=== PATIENT | female | born 1950 | race Caucasian/White ===

== ENCOUNTER 2019-01-07 19:25 | Observation (INO) | payer OTHER ==
--- NOTE | 2019-01-07 19:35 | EDPHY ---
H & P Stated Complaint: chest pressure, fullness, sob Time Seen by Provider: 01/07/19 19:33 - Personal History Current Tetanus Diphtheria and Acellular Pertussis (TDAP): Yes Tetanus Vaccine Date: WITHIN 10 YRS - Medical/Surgical History Hx Asthma: No Hx Chronic Respiratory Disease: No Hx Diabetes: Yes Hx Cardiac Disease: Yes Hx Renal Disease: No Hx Cirrhosis: No Hx Alcoholism: No Hx HIV/AIDS: No Hx Splenectomy or Spleen Trauma: No Other PMH: hypertension, diabetic type 2. cardiac ablation - Social History Smoking Status: Never smoked Constitutional: Initial Vital Signs Temperature (C) 36.9 C 01/07/19 19:29 Heart Rate 55 L 01/07/19 19:29 Respiratory Rate 18 01/07/19 19:29 Blood Pressure 178/64 H 01/07/19 19:29 O2 Sat (%) 92 01/07/19 19:29 O2 Delivery Mode Room Air Allergies/Adverse Reactions: No Known Allergies Allergy (Unverified 01/07/19 19:28) Home Medications: Medication Instructions Recorded Glimepiride 01/07/19 Herbals/Supplements -Info Only 1 ea PO DAILY 01/07/19 Losartan Potassium 01/07/19 Metformin HCl 01/07/19 Pravastatin Sodium 01/07/19 Ranitidine HCl 01/07/19 Medical Decision Making - Diagnostics Imaging: I viewed and interpreted images myself ED Course/Re-evaluation: CHIEF COMPLAINT: Chest pressure, shortness of breath HISTORY OF PRESENT ILLNESS: The patient is a 68 y/o female with a history of PSVT, a cardiac ablation, hypertension, and diabetes complaining of "an odd feeling in her chest" and shortness of breath. Around 2 years ago she saw her hand upper and bottom lacer as her heart was "beating hard". After numerous tests, she had no significant diagnoses. Today she developed the odd symptoms and decided to present to the emergency department. No fever, headache, body aches, lightheadedness, cough, abdominal pain, urinary or bowel complaints, numbness, paresthesias. REVIEW OF SYSTEMS: A 10 point review of systems was performed and is negative with the exception of the elements mentioned in the history of present illness. PHYSICAL EXAM: HR, BP, O2 Sat, RR. Temp noted General Appearance: Alert, well hydrated, appropriate, and non-toxic appearing. Head: Atraumatic without scalp tenderness or obvious injury Eyes: Pupils equal, round, reactive to light and accommodation, EOMI, no trauma , no injection. Ears: Clear bilaterally, no perforation, normal landmarks Nose: Atraumatic, no rhinorrhea, clear. Throat: There is no erythema or exudates, no lesions, normal tonsils, mucus membranes moist. Neck: Supple, 2+ carotid upstroke, nontender, no lymphadenopathy. Respiratory: No retractions, no distress, no wheezes, and no accessory muscle use. Lungs are clear to auscultation bilaterally. Cardiovascular: Regular rate and rhythm, no murmurs, rubs, or gallops. Bilateral carotid, radial, dorsalis pedis, and posterior tibial pulses intact. Good capillary refill all extremities. Gastrointestinal: Abdomen is soft, nontender, non-distended, no masses, no rebound, no guarding, no peritoneal signs. Musculoskeletal: Normal active ROM of all extremities, atraumatic. Neurological: Alert, appropriate, and interactive. The patient has normal DTRs and non-focal cranial nerves, motor, sensory, and cerebellar exam. Skin: No rashes, good turgor, no nodules on palpation. Past medical history: Hypertension, diabetic (type 2), PSVT Past surgical history: Cardiac ablation (by Dr. Moe) Family history: Denies Social history: Lives in [place], employed, single DIAGNOSTICS/PROCEDURES/CRITICAL CARE TIME: EKG: The 12 lead EKG was interpreted by myself as sinus tachycardia with a rate of 103 and ventricular bigeminy. See hard copy and/or "tracemaster" electronic copy for interpretation. Chest x-ray: No acute findings. DIFFERENTIAL DIAGNOSIS: The differential diagnosis for the patient's chest pain included but was not limited to myocardial ischemia, pulmonary embolus, chest wall pain, pleural inflammation, and pulmonary infectious causes. MEDICAL DECISION MAKING: The patient is a 68 y/o female with a history of PSVT, a cardiac ablation, hypertension, and diabetes presenting with "an odd feeling in her chest" and shortness of breath. She has a normal physical exam as she is out of PSVT. She will be in normal sinus for 4-5 minutes and then back into PSVT for several minutes. Labs, EKG, and chest x-ray ordered. I also discussed plan for admission , which she is comfortable with. 1936: I reviewed patient's EKG as sinus tachycardia with a rate of 103 and ventricular bigeminy. 1943: I consulted with Dr. Degroot, hand upper and bottom lacer, regarding this patient. He does not believe that the patient will need any antiarrhythmics. He will consult on this patient during her admission. 1999: Patient's troponin is negative. I will page the hospitalist for admission. 2030: I consulted with the hospitalist service, Dr. Lorenz accepts admission of this patient for her bigeminy rhythm. - Data Points Laboratory Results: Laboratory Results 01/07/19 19:35 01/07/19 19:35 01/07/19 01/07/19 01/07/19 19:54 19:50 19:42 WBC RBC Hgb POC Hgb 15.3 gm/dL gm/dL (12.6-16.3) Hct POC Hct 45 % % (38-47) MCV MCH MCHC RDW Plt Count MPV Neut % (Auto) Lymph % (Auto) Mower % (Auto) Eos % (Auto) Baso % (Auto) Nucleat RBC Rel Count Absolute Neuts (auto) Absolute Lymphs (auto) Absolute Monos (auto) Absolute Eos (auto) Absolute Basos (auto) Absolute Nucleated RBC Immature Gran % Immature Gran # POC Sodium 141 mEq/L mEq/L (135-145) Sodium POC Potassium 3.8 mEq/L mEq/L (3.3-5.0) Potassium POC Chloride 102 mEq/L mEq/L (97-110) Chloride Carbon Dioxide POC Total CO2 26 mEq/L mEq/L (22-31) Anion Gap POC BUN 17 mg/dL mg/dL (7-23) BUN Creatinine POC Creatinine 0.9 mg/dL mg/dL (0.6-1.0) Estimated GFR Glucose POC Glucose 195 mg/dL H mg/dL (70-100) Calcium Magnesium POC Troponin I 0.00 ng/mL ng/mL TNP (0.00-0.08) NT-Pro-B Natriuret Pep 01/07/19 01/07/19 19:35 19:35 WBC 6.91 10^3/uL 10^3/uL (3.80-9.50) RBC 4.79 10^6/uL 10^6/uL (4.18-5.33) Hgb 14.4 g/dL g/dL (12.6-16.3) POC Hgb Hct 44.1 % % (38.0-47.0) POC Hct MCV 92.1 fL fL (81.5-99.8) MCH 30.1 pg pg (27.9-34.1) MCHC 32.7 g/dL g/dL (32.4-36.7) RDW 12.8 % % (11.5-15.2) Plt Count 307 10^3/uL 10^3/uL (150-400) MPV 9.6 fL fL (8.7-11.7) Neut % (Auto) 46.0 % % (39.3-74.2) Lymph % (Auto) 39.1 % % (15.0-45.0) Mower % (Auto) 11.3 % % (4.5-13.0) Eos % (Auto) 2.6 % % (0.6-7.6) Baso % (Auto) 0.7 % % (0.3-1.7) Nucleat RBC Rel Count 0.0 % % (0.0-0.2) Absolute Neuts (auto) 3.18 10^3/uL 10^3/uL (1.70-6.50) Absolute Lymphs (auto) 2.70 10^3/uL 10^3/uL (1.00-3.00) Absolute Monos (auto) 0.78 10^3/uL 10^3/uL (0.30-0.80) Absolute Eos (auto) 0.18 10^3/uL 10^3/uL (0.03-0.40) Absolute Basos (auto) 0.05 10^3/uL 10^3/uL (0.02-0.10) Absolute Nucleated RBC 0.00 10^3/uL 10^3/uL (0-0.01) Immature Gran % 0.3 % % (0.0-1.1) Immature Gran # 0.02 10^3/uL 10^3/uL (0.00-0.10) POC Sodium Sodium 138 mEq/L mEq/L (135-145) POC Potassium Potassium 4.1 mEq/L mEq/L (3.5-5.2) POC Chloride Chloride 100 mEq/L mEq/L (97-110) Carbon Dioxide 26 mEq/l mEq/l (22-31) POC Total CO2 Anion Gap 12 mEq/L mEq/L (6-14) POC BUN BUN 18 mg/dL mg/dL (7-23) Creatinine 0.8 mg/dL mg/dL (0.6-1.0) POC Creatinine Estimated GFR > 60 Glucose 188 mg/dL H mg/dL (70-100) POC Glucose Calcium 10.0 mg/dL mg/dL (8.5-10.4) Magnesium 1.8 mg/dL mg/dL (1.6-2.3) POC Troponin I NT-Pro-B Natriuret Pep 49 pg/mL pg/mL (0-125) Point of Care Test Results: Chemistry 01/07/19 01/07/19 01/07/19 19:54 19:50 19:42 POC Sodium 141 mEq/L mEq/L (135-145) POC Potassium 3.8 mEq/L mEq/L (3.3-5.0) POC Chloride 102 mEq/L mEq/L (97-110) POC Total CO2 26 mEq/L mEq/L (22-31) POC BUN 17 mg/dL mg/dL (7-23) POC Creatinine 0.9 mg/dL mg/dL (0.6-1.0) POC Glucose 195 mg/dL H mg/dL (70-100) POC Troponin I 0.00 ng/mL ng/mL TNP (0.00-0.08) ISTAT H&H 01/07/19 19:50 POC Hgb 15.3 gm/dL gm/dL (12.6-16.3) POC Hct 45 % % (38-47) Departure - Departure Disposition: [facility] Inpatient Acute Clinical Impression: Ventricular bigeminy, Shortness of breath Chest pain Qualifiers: Chest pain type: other chest pain Qualified Code(s): R07.89 - Other chest pain Condition: Fair Referrals: Ruth Almeida MD [Primary Care Provider] - As per Instructions Report Scribed for: Silvio Schmidt Report Scribed by: Gloria Kemp Date of Report: 01/07/19 Time of Report: 19:46
[2019-01-07 19:50] LABS: PLATELET COUNT 307 10^3/uL (150-400)
--- NOTE | 2019-01-07 20:02 | CPEKG ---
Test Reason : OPEN Blood Pressure : / mmHG Vent. Rate : 103 BPM Atrial Rate : 049 BPM P-R Int : 145 ms QRS Dur : 088 ms QT Int : 297 ms P-R-T Axes : 050 -12 212 degrees QTc Int : 389 ms Sinus tachycardia Ventricular bigeminy Probable left atrial enlargement Left ventricular hypertrophy Abnormal T, consider ischemia, diffuse leads Confirmed by Silvio Schmidt ([id number]) on 01/07/2019 8:02:04 PM Referred By: Silvio Schmidt Confirmed By:Silvio Schmidt
[2019-01-07] MEDS: FAMOTIDINE 20 MG TAB PO SCH (20:47)
--- NOTE | 2019-01-07 20:55 | PDGENHP ---
History and Physical - Chief Complaint chest pressure - History of Present Illness The patient is a 68 y/o female with a history of PSVT, a cardiac ablation, hypertension, and diabetes complaining of "an odd feeling in her chest" and shortness of breath which started several days ago. In the ER she is noted to have bigeminy intermittently. While she is having bigeminy, she is noted to have cp and dyspnea. She denies fevers, headache, body aches, lightheadedness, cough, abdominal pain , urinary or bowel complaints, numbness, paresthesias. She denies palpitations She denies leg swelling Past medical history: Hypertension, diabetic (type 2), PSVT Past surgical history: Cardiac ablation (by Dr. Moe) Family history: non contributory Social history: Lives in [place], employed, single EKG: ventricular bigeminy. Chest x-ray: No acute findings. History Information - Allergies/Home Medication List Allergies/Adverse Reactions: No Known Allergies Allergy (Unverified 01/07/19 19:28) Home Medications: Glimepiride [Amaryl 1 MG (*)] 1 mg PO DAILY 01/07/19 [Last Taken 01/07/19 08:00] Herbals/Supplements -Info Only 1 ea PO DAILY 01/07/19 [Last Taken 01/07/19] Losartan Potassium [Cozaar 50 mg (*)] 50 mg PO HS 01/07/19 [Last Taken 01/07/19 20:00] Pravastatin Sodium 40 mg PO HS 01/07/19 [Last Taken 01/07/19 20:00] Ranitidine HCl 150 mg PO BID 01/07/19 [Last Taken 01/07/19 20:00] metFORMIN HCL [Glucophage 1000 mg] 1,000 mg PO BIDMEAL 01/07/19 [Last Taken 20:00] I have personally reviewed and updated: medical history, social history - Social History Smoking Status: Never smoked Review of Systems Review of Systems: ROS: 10pt was reviewed & negative except for what was stated in HPI & below Physical Exam Physical Exam: Temp Pulse Resp BP Pulse Ox 36.9 C 90 20 160/90 H 92 01/07/19 19:29 01/07/19 20:14 01/07/19 20:14 01/07/19 20:14 01/07/19 20:14 Constitutional: no apparent distress Eyes: PERRL, EOMI Ears, Nose, Mouth, Throat: moist mucous membranes, hearing normal Cardiovascular: regular rate and rhythym, no murmur, rub, or gallop, No edema Respiratory: no respiratory distress, no rales or rhonchi, clear to auscultation Gastrointestinal: normoactive bowel sounds, soft, non-tender abdomen Genitourinary: no bladder fullness Skin: warm Neurologic: AAOx3 Psychiatric: interacting appropriately, not anxious, not encephalopathic Lymph, Heme, Immunologic: No petechiae Lab Data & Imaging Review 01/07/19 19:35 01/07/19 19:35 WBC 6.91 10^3/uL (3.80-9.50) 01/07/19 19:35 RBC 4.79 10^6/uL (4.18-5.33) 01/07/19 19:35 Hgb 14.4 g/dL (12.6-16.3) 01/07/19 19:35 POC Hgb 15.3 gm/dL (12.6-16.3) 01/07/19 19:50 Hct 44.1 % (38.0-47.0) 01/07/19 19:35 POC Hct 45 % (38-47) 01/07/19 19:50 MCV 92.1 fL (81.5-99.8) 01/07/19 19:35 MCH 30.1 pg (27.9-34.1) 01/07/19 19:35 MCHC 32.7 g/dL (32.4-36.7) 01/07/19 19:35 RDW 12.8 % (11.5-15.2) 01/07/19 19:35 Plt Count 307 10^3/uL (150-400) 01/07/19 19:35 MPV 9.6 fL (8.7-11.7) 01/07/19 19:35 Neut % (Auto) 46.0 % (39.3-74.2) 01/07/19 19:35 Lymph % (Auto) 39.1 % (15.0-45.0) 01/07/19 19:35 Baker % (Auto) 11.3 % (4.5-13.0) 01/07/19 19:35 Eos % (Auto) 2.6 % (0.6-7.6) 01/07/19 19:35 Baso % (Auto) 0.7 % (0.3-1.7) 01/07/19 19:35 Nucleat RBC Rel Count 0.0 % (0.0-0.2) 01/07/19 19:35 Absolute Neuts (auto) 3.18 10^3/uL (1.70-6.50) 01/07/19 19:35 Absolute Lymphs (auto) 2.70 10^3/uL (1.00-3.00) 01/07/19 19:35 Absolute Monos (auto) 0.78 10^3/uL (0.30-0.80) 01/07/19 19:35 Absolute Eos (auto) 0.18 10^3/uL (0.03-0.40) 01/07/19 19:35 Absolute Basos (auto) 0.05 10^3/uL (0.02-0.10) 01/07/19 19:35 Absolute Nucleated RBC 0.00 10^3/uL (0-0.01) 01/07/19 19:35 Immature Gran % 0.3 % (0.0-1.1) 01/07/19 19:35 Immature Gran # 0.02 10^3/uL (0.00-0.10) 01/07/19 19:35 POC Sodium 141 mEq/L (135-145) 01/07/19 19:50 Sodium 138 mEq/L (135-145) 01/07/19 19:35 POC Potassium 3.8 mEq/L (3.3-5.0) 01/07/19 19:50 Potassium 4.1 mEq/L (3.5-5.2) 01/07/19 19:35 POC Chloride 102 mEq/L (97-110) 01/07/19 19:50 Chloride 100 mEq/L (97-110) 01/07/19 19:35 Carbon Dioxide 26 mEq/l (22-31) 01/07/19 19:35 POC Total CO2 26 mEq/L (22-31) 01/07/19 19:50 Anion Gap 12 mEq/L (6-14) 05/16/19 19:35 POC BUN 17 mg/dL (7-23) 01/07/19 19:50 BUN 18 mg/dL (7-23) 01/07/19 19:35 Creatinine 0.8 mg/dL (0.6-1.0) 01/07/19 19:35 POC Creatinine 0.9 mg/dL (0.6-1.0) 01/07/19 19:50 Estimated GFR > 60 01/07/19 19:35 Glucose 188 mg/dL (70-100) H 01/07/19 19:35 POC Glucose 195 mg/dL (70-100) H 01/07/19 19:50 Calcium 10.0 mg/dL (8.5-10.4) 01/07/19 19:35 Magnesium 1.8 mg/dL (1.6-2.3) 01/07/19 19:35 POC Troponin I 0.00 ng/mL (0.00-0.08) 01/07/19 19:54 NT-Pro-B Natriuret Pep 49 pg/mL (0-125) 01/07/19 19:35 Assessment & Plan Assessment: #Chest pain (Acute) -HEART score 5-6 #Dyspnea #Ventricular bigeminy (Acute) #DMII, NIDDM #HTN #HLD #GERD Plan: Admission Cardiology consultation. Await decision for additional testing, cardiac stress, or interventions CP r/o, tele, trop TTE consider BB. Dr. Degroot communicated to the ER to not use antiarrhythmics for now so as to not suppress the rhythm Insulin sliding scale. Hold oral DM meds for now cont appropriate home meds Lovenox for DVT proph
[2019-01-07] MEDS ORDERED: ONDANSETRON 4 MG/2 ML VIAL IVP PRN (20:59)
[2019-01-07] MEDS ORDERED: ACETAMINOPHEN 325 MG TAB PO PRN (20:59)
[2019-01-07] MEDS ORDERED: ONDANSETRON DISINTEGRATING 4 MG TAB PO PRN (20:59)
[2019-01-07] MEDS ORDERED: PRAVASTATIN SODIUM 40 MG TAB PO SCH (21:00)
[2019-01-07] MEDS ORDERED: LOSARTAN POTASSIUM 50 MG TAB PO SCH (21:00)
[2019-01-07] MEDS ORDERED: D50W 25 GM/50 ML SYR IVP PRN (21:02)
[2019-01-07] MEDS: ENOXAPARIN 40 MG/0.4 ML SYR SC SCH (21:48)
[2019-01-08 04:30] LABS: PLATELET COUNT 276 10^3/uL (150-400)
[2019-01-08] MEDS: ENOXAPARIN 40 MG/0.4 ML SYR SC SCH (07:50)
[2019-01-08] MEDS ORDERED: INSULIN LISPRO 100 UNIT/ML SC SCH (08:00)
[2019-01-08] MEDS: FAMOTIDINE 20 MG TAB PO SCH (08:08)
[2019-01-08] MEDS ORDERED: Herbals/Supplements -Info Only PO SCH (09:00)
--- NOTE | 2019-01-08 09:42 | ASMTCMCOM ---
CM Note CM Note Notes: Chart reviewed for dc planning purposes. 68 year old female who normally lives independently admitted via ED for c/o sob and odd feeling in her chest. History significant for cardiac ablation. CM to follow for needs. Plan: TBD Date Signed: 01/08/2019 09:41 AM Electronically Signed By:Bobbi Saldaña RN
--- NOTE | 2019-01-08 10:15 | PDCARCONS ---
Cardiology Consult Reason for Consult: Symptomatic PVCs Chief Complaint: Lightheadedness, chest pressure, shortness of breath, fatigue History of Present Illness: Ms Juárez is a very pleasant 68-year-old female whose past medical history is notable for SVT status post remote ablation. She presents with complaints of fatigue, lightheadedness, dyspnea, chest pressure which have been escalating over the last couple months; she finally presented for evaluation yesterday evening due to escalation of symptoms, however there was not a true change in the pattern of symptoms from the way she is describing them. In the ER, she was found to be in sinus rhythm with ventricular bigeminy; the 12 lead appearance of the PVCs suggests a right ventricular outflow tract origin. She states that, while her PVCs were coming and going on the potline monitor, her symptoms were clearly increasing and decreasing in association with PVC burden. She reports that over the last couple months, she has had chest pressure in the middle of her chest with radiation up into her neck, which is the most concerning symptom for her. Since presentation, she has remained in sinus rhythm with ongoing salvos of PVCs, but no episodes of either unsustained or sustained VT. History Information - Allergies/Home Medication List Allergies/Adverse Reactions: No Known Allergies Allergy (Unverified 01/07/19 19:28) Home Medications: Glimepiride [Amaryl 1 MG (*)] 1 mg PO DAILY 01/07/19 [Last Taken 01/07/19 08:00] Herbals/Supplements -Info Only 1 ea PO DAILY 01/07/19 [Last Taken 01/07/19] Losartan Potassium [Cozaar 50 mg (*)] 50 mg PO HS 01/07/19 [Last Taken 01/07/19 20:00] Pravastatin Sodium 40 mg PO HS 01/07/19 [Last Taken 01/07/19 20:00] Ranitidine HCl 150 mg PO BID 01/07/19 [Last Taken 01/07/19 20:00] metFORMIN HCL [Glucophage 1000 mg] 1,000 mg PO BIDMEAL 01/07/19 [Last Taken 20:00] Past Medical History: SVT status post ablation, diabetes mellitus type 2, hypertension - Family History Additional family history: No history of sudden - Social History Smoking Status: Never smoked Alcohol Use: None Drug Use: None Physical Exam Physical Exam: Temp Pulse Resp BP Pulse Ox 36.4 C 87 18 139/80 H 95 01/08/19 07:38 01/08/19 07:38 01/08/19 07:38 01/08/19 07:38 01/08/19 07:38 Constitutional: no apparent distress, not in pain Eyes: PERRL, EOMI Ears, Nose, Mouth, Throat: moist mucous membranes Cardiovascular: regular rate and rhythym, no murmur, rub, or gallop, pulses symmetric bilaterally Peripheral Pulses: 2+: carotid (R), carotid (L), femoral (R), femoral (L), dorsalis-pedis (R), dorsalis-pedis (L) Respiratory: no respiratory distress, clear to auscultation Gastrointestinal: normoactive bowel sounds, soft, non-tender abdomen Skin: warm, no rashes or abrasions Musculoskeletal: full muscle strength Neurologic: AAOx3, CN II-XII Intact Psychiatric: interacting appropriately, not anxious, not encephalopathic, thought process linear Lab and Imaging 01/08/19 03:20 01/08/19 03:20 WBC 5.64 10^3/uL (3.80-9.50) 01/08/19 03:20 RBC 4.44 10^6/uL (4.18-5.33) 01/08/19 03:20 Hgb 13.3 g/dL (12.6-16.3) 01/08/19 03:20 POC Hgb 15.3 gm/dL (12.6-16.3) 01/07/19 19:50 Hct 41.2 % (38.0-47.0) 01/08/19 03:20 POC Hct 45 % (38-47) 01/07/19 19:50 MCV 92.8 fL (81.5-99.8) 01/08/19 03:20 MCH 30.0 pg (27.9-34.1) 01/08/19 03:20 MCHC 32.3 g/dL (32.4-36.7) L 01/08/19 03:20 RDW 12.8 % (11.5-15.2) 01/08/19 03:20 Plt Count 276 10^3/uL (150-400) 01/08/19 03:20 MPV 9.5 fL (8.7-11.7) 01/08/19 03:20 Neut % (Auto) 43.4 % (39.3-74.2) 01/08/19 03:20 Lymph % (Auto) 41.3 % (15.0-45.0) 01/08/19 03:20 Ray % (Auto) 10.8 % (4.5-13.0) 01/08/19 03:20 Eos % (Auto) 3.2 % (0.6-7.6) 01/08/19 03:20 Baso % (Auto) 0.9 % (0.3-1.7) 01/08/19 03:20 Nucleat RBC Rel Count 0.0 % (0.0-0.2) 01/08/19 03:20 Absolute Neuts (auto) 2.45 10^3/uL (1.70-6.50) 01/08/19 03:20 Absolute Lymphs (auto) 2.33 10^3/uL (1.00-3.00) 01/08/19 03:20 Absolute Monos (auto) 0.61 10^3/uL (0.30-0.80) 01/08/19 03:20 Absolute Eos (auto) 0.18 10^3/uL (0.03-0.40) 01/08/19 03:20 Absolute Basos (auto) 0.05 10^3/uL (0.02-0.10) 01/08/19 03:20 Absolute Nucleated RBC 0.00 10^3/uL (0-0.01) 01/08/19 03:20 Immature Gran % 0.4 % (0.0-1.1) 01/08/19 03:20 Immature Gran # 0.02 10^3/uL (0.00-0.10) 01/08/19 03:20 POC Sodium 141 mEq/L (135-145) 01/07/19 19:50 Sodium 140 mEq/L (135-145) 01/08/19 03:20 POC Potassium 3.8 mEq/L (3.3-5.0) 01/07/19 19:50 Potassium 4.0 mEq/L (3.5-5.2) 01/08/19 03:20 POC Chloride 102 mEq/L (97-110) 01/07/19 19:50 Chloride 104 mEq/L (97-110) 01/08/19 03:20 Carbon Dioxide 24 mEq/l (22-31) 01/08/19 03:20 POC Total CO2 26 mEq/L (22-31) 01/07/19 19:50 Anion Gap 12 mEq/L (6-14) 01/08/19 03:20 POC BUN 17 mg/dL (7-23) 01/07/19 19:50 BUN 17 mg/dL (7-23) 01/08/19 03:20 Creatinine 0.6 mg/dL (0.6-1.0) 01/08/19 03:20 POC Creatinine 0.9 mg/dL (0.6-1.0) 01/07/19 19:50 Estimated GFR > 60 01/08/19 03:20 Glucose 126 mg/dL (70-100) H 01/08/19 03:20 POC Glucose 167 mg/dL (70-100) H 01/08/19 07:47 Hemoglobin A1c 8.2 % (4.0-6.0) H 01/07/19 21:02 Estim Average Glucose 189 mg/dL (68-126) H 01/07/19 21:02 Calcium 9.3 mg/dL (8.5-10.4) 01/08/19 03:20 Magnesium 1.8 mg/dL (1.6-2.3) 01/07/19 19:35 POC Troponin I 0.00 ng/mL (0.00-0.08) 01/07/19 19:54 Troponin I < 0.012 ng/mL (0.000-0.034) 01/08/19 09:10 NT-Pro-B Natriuret Pep 49 pg/mL (0-125) 01/07/19 19:35 Triglycerides 175 mg/dL (35-135) H 01/08/19 03:20 Cholesterol 157 mg/dL (140-220) 01/08/19 03:20 Cholesterol Risk Factr 0.8 (0.2-1.0) 01/08/19 03:20 LDL Cholesterol, Calc 80 mg/dL (80-100) 01/08/19 03:20 LDL Risk Factor 0.6 (0.2-1.0) 01/08/19 03:20 VLDL Cholesterol 35 mg/dL (8-25) H 01/08/19 03:20 Non-HDL Cholesterol 115 mg/dL (90-129) 01/08/19 03:20 HDL Cholesterol 42 mg/dL (40-85) 01/08/19 03:20 LDL/HDL Ratio 1.90 RATIO (1.00-3.22) 01/08/19 03:20 Cholesterol/HDL Ratio 3.74 RATIO (1.00-4.44) 01/08/19 03:20 Chest X-ray Interpretation: normal Visualized and Interpreted EKG results: Yes EKG additional interpertation: See HPI Telemetry: See HPI A/P Assessment: Symptomatic right ventricular outflow tract PVCs Atypical angina Plan: 68-year-old female with past medical history notable for remote SVT ablation. Also notable for hypertension and diabetes mellitus type 2 as coronary artery disease risk factors. She presents with symptomatic right ventricular outflow tract PVCs, which I suspect are the underlying cause of her entire symptom complex. However, she does describe chest pressure radiating into the neck, which is concerning for atypical angina, especially given her cardiac risk factors. 1. Start diltiazem for suppression of PVCs - extended release formulation 120 mg daily 2. Obtain echocardiogram 3. I would recommend cardiac perfusion imaging to rule out inducible ischemia- this is both due to the presence of atypical angina, as well as the potential for use of class 1 C antiarrhythmic agents in the future 4. We discussed potential EP study and ablation as an option, but would 1st want to start with calcium channel blockers, then class 1 C antiarrhythmic agents, then potentially proceed to ablation if this is necessary 5. I will plan to see her in clinic in 1 months time to reassess symptom control on diltiazem
--- NOTE | 2019-01-08 10:23 | ECHO ---
[email or web address] [address] [address] Main: [phone] Echocardiography Examination Transthoracic Name: THI PRIETO MR#: [id number] Study Date: 01/08/2019 Study Time: 09:13 AM Date of : 1950 Age: 68 year(s) Height: 154.9 cm (61 in.) Weight: 80.29 kg (177 lb.) BSA: 1.79 m2 Gender: Female Examination: Echo Contrast: Image Quality: Adequate Rhythm: Heart Rate: BP: 139 mmHg/80 mmHg Indication: Chest pressure/Bigeminy Procedure Staff Referring Physician: Boring Machine Operator Vertical: Evonne Blum [facility] Reading Physician: Jonelle Espinal MD Requesting Provider: Ordering Physician: Tj Lorenz Indication: Chest pressure/Bigeminy Measurements Chambers AV/MV Label Value Normal Value Label Value Normal Value LVDd, 2D 5.1 cm (3.9cm - 5.3cm) AR PHT 0.55 s LVDs, 2D 3.5 cm (2.1cm - 4cm) AR PHT 551 ms IVSd, 2D 0.4 cm (0.6cm - 1.1cm) AR Vmax 3.83 m/s LVPWd, 2D 0.7 cm AV PGmax 6 mmHg LVEF, BP 67 % (55% - 70%) AV PGmean 4 mmHg LVEF, 2D 59 % (54% - 74%) AV Vmax 1.27 m/s LA Volume, BP 32 ml (22ml - 52ml) MV E Vmax 0.66 m/s LADs, 2D 3.4 cm (2.7cm - 3.8cm) MV A Vmax 1.15 m/s LAESV index, BP 17.9 ml/m2 MV E/A 0.57 Additional Vessels MV E/E' lateral 8.5 Label Value Normal Value MV E/E' septal 12.7 (0.45 - 1.25) AoAsc 3.2 cm MV E' septal 0.05 m/s AoRoot, MM 3.6 cm (2.2cm - 3.7cm) MV E' lateral 0.08 m/s MV E/E' mean 10.15 MV E' mean 0.06 m/s TV/PV Label Value Normal Value RA Pressure 5 mmHg RVSP 32 mmHg Patient: THI PRIETO Study Date: 01/08/2019 Page 1 of 3 09:13 AM TR Pmax 27 mmHg TR Vmax 2.61 m/s Conclusions 1. the left ventricle is normal in size and systolic function. Ejection fraction is 67%. Normal wall thickness. No regional wall motion abnormalities. Normal diastolic function. 2. The right ventricle is normal in size and systolic function. 3. Trivial to mild mitral regurgitation. 4. Trivial aortic regurgitation. 5. Trace TR with normal estimated PA systolic pressure. 6. Compared with 10/12/2015 overall similar findings Findings Left Ventricle: Left ventricle is normal in size. Normal global systolic left ventricular function. The ejection fraction, measured by Simpsons method, is 67 %. EF range is estimated at 65 % - 70 %. Left ventricle wall thickness is normal. There are no regional wall motion abnormalities. Left ventricular diastolic function parameters are normal. IVS: The septum is intact. Right Ventricle: Normal size right ventricle. Right ventricular systolic function is normal. Left Atrium: The left atrium is normal in size. IAS: Normal appearing atrial septum. Right Atrium: The right atrium is normal in size. Mitral Valve: Mitral valve appears structurally normal. Trivial to mild mitral regurgitation. No mitral valve stenosis. Aortic Valve: Aortic leaflets exhibit normal cuspal separation. Trivial aortic regurgitation is present. There is no aortic stenosis. The aortic valve is trileaflet. Tricuspid Valve: Tricuspid valve leaflets are normal in appearance and function. Trivial tricuspid regurgitation. No tricuspid valve stenosis. Right Ventricular systolic pressure is measured at 32 mmHg. Pulmonary artery pressure normal. Pulmonic Valve: Pulmonic valve is poorly visualized. Pulmonic leaflets exhibit normal cuspal separation. Trivial pulmonic valve regurgitation is present. There is no pulmonic valve stenosis. Aorta: The aorta is normal. The aortic root size in M-mode measures 3.6 cm. The ascending aorta measures 3.2 cm. Aorta Measurements AoRoot, MM is 3.6 cm. Pulmonary Artery: The pulmonary artery morphology appears normal. IVC: The inferior vena cava is normal in size and course. Pericardium: A pericardial fat pad is present. No pericardial effusion. No pleural effusion present. Exam Details Procedure Ordered: Echo Procedure Status: Routine study Image Quality: Adequate Patient: THI PRIETO Study Date: 01/08/2019 Page 2 of 3 09:13 AM Facility Location: Cardiac Echo 1 (No Signature Object) Patient: THI PRIETO Study Date: 01/08/2019 Page 3 of 3 09:13 AM [id number]
[2019-01-08] MEDS ORDERED: DILTIAZEM CD 120 MG CAP PO SCH (10:30)
--- NOTE | 2019-01-08 10:50 | HOSPPROG ---
Hospitalist Progress Note Assessment/Plan: 68 yo F w symptomatic pvc's resolved w dilt declined inpt stress see dc summary Subjective: pvc's resolved w diltiazem Objective: Vital Signs Temp Pulse Resp BP Pulse Ox 36.4 C 87 18 139/80 H 95 01/08/19 07:38 01/08/19 07:38 01/08/19 07:38 01/08/19 07:38 01/08/19 07:38 Laboratory Results 01/08/19 03:20 01/08/19 03:20 01/07/19 01/08/19 01/09/19 05:59 05:59 05:59 Intake Total 150 Balance 150 - Physical Exam Constitutional: no apparent distress, appears nourished Eyes: PERRL, anicteric sclera Ears, Nose, Mouth, Throat: moist mucous membranes, hearing normal Cardiovascular: regular rate and rhythym, no murmur, rub, or gallop Respiratory: no respiratory distress, no rales or rhonchi Gastrointestinal: normoactive bowel sounds, soft, non-tender abdomen Genitourinary: no bladder fullness, No curry in urethra Skin: warm, normal color Musculoskeletal: full muscle strength Neurologic: AAOx3 Psychiatric: interacting appropriately Lymph, Heme, Immunologic: no cervical LAD ICD10 Worksheet Patient Problems: Problems Problem Status Onset Chest pain Acute Shortness of breath Acute Ventricular bigeminy Acute
--- NOTE | 2019-01-08 10:57 | ASMTLACE ---
LACE Length of stay for Answers: Less than 1 day current admission Comorbidities - select Answers: Diabetes (uncontrolled or all that apply controlled) # of Emergency department Answers: 1-2 visits in the last 6 months Score: 2 Date Signed: 01/08/2019 10:56 AM Electronically Signed By:Bobbi Saldaña RN
--- NOTE | 2019-01-08 11:00 | ASMTDCNOTE ---
Case Management Discharge Discharge Order Complete? Answers: Yes Patient to Obtain Answers: Independently Medications Transportation Arranged Answers: Family/Friends Discharge Comments Notes: Patient medically cleared for dischrge to home. No needs noted at present . CM available should needs arise. Date Signed: 01/08/2019 10:58 AM Electronically Signed By:Bobbi Saldaña RN
--- NOTE | 2019-01-08 11:09 | GDS ---
[f rep st] DISCHARGE SUMMARY DISCHARGE DIAGNOSES: 1. History of supraventricular tachycardia. 2. Symptomatic premature ventricular contractions with bigeminy. 3. History of diabetes. 4. History of hypertension. HISTORY: Please see admission history and physical by Dr. Kavin Lorenz. The patient presented wi th upper chest symptoms including pressure and an odd feeling in her chest that was found to be in ve ntricular bigeminy. Her symptoms tracked with increased number of PVCs. She had a nonischemic EKG, negative troponin. She enjoys good cardiovascular exertional capacity as an outpatient. She has had stress tests that were negative in the past that have been unremarkable. She was seen by Cardiology who recommended diltiazem therapy which revealed decreasing amounts of PVC s. The patient is very anxious for discharge. She declined the offered inpatient ischemic eval. Th is was felt to be a good idea by Dr. Grover who saw her in case there is a need for class 1 antiarr hythmics going forward. Certainly, this could be performed as an outpatient. While her symptoms are possibly suggestive of ischemic heart disease, she had no objective evidence of that at this time. I do acknowledge her risk factor profile. We discussed this at length and ultimately she declines th is and is discharged home today with diltiazem. /[id number]/MODL
[2019-01-08 11:15] VITALS: BP 150/89
--- NOTE | 2019-01-11 13:59 | CPEKG ---
Test Reason : OPEN Blood Pressure : / mmHG Vent. Rate : 094 BPM Atrial Rate : 094 BPM P-R Int : 145 ms QRS Dur : 088 ms QT Int : 381 ms P-R-T Axes : 043 -13 035 degrees QTc Int : 477 ms Sinus rhythm Low voltage, precordial leads Left ventricular hypertrophy Confirmed by Bradford Moe ([id number]) on 01/11/2019 1:59:14 PM Referred By: Tj Lorenz Confirmed By:Bradford Moe
== END 2019-01-08 11:30 | disposition home or self-care (01) ==
LOC: F2W 20:40
PROVIDERS: ADMIT Family Medicine; ATTEND Internal Medicine
DX: I49.3 Ventricular premature depolarization (principal); I20.9 Angina pectoris, unspecified; I10 Essential (primary) hypertension; E11.9 Type 2 diabetes mellitus without complications
CPT/HCPCS: 71046; 93005; 93306; 99285; G0378; J1815; 82435-PO; 82565-PO; 82947-PO; 84132-PO; 84295-PO; 84484-ER; 84520-PO; 85014-ER; J1650

== ENCOUNTER → 2019-01-25 | Outpatient (CLI) | payer OTHER | LOC: BHFA 13:00 | PROVIDERS: ATTEND Internal Medicine Cardiovascular Disease | DX: I20.8 Other forms of angina pectoris (principal) | CPT/HCPCS: 78452; 93017; A9500 ==